=== PATIENT | male | born 1945 | race Caucasian/White ===

== ENCOUNTER 2017-01-02 11:30 | Inpatient (IN) | payer MEDICARE, OTHER ==
--- NOTE | ~2017-01-02 | CR72 ---
[facility] A Service of [facility] & [facility] RADIOLOGY TEXT RESULTS PATIENT: JOSE LAUREN LOCATION: [facility] 231- : 46 UNIT #: [id number] AGE: [address]: Alda Chatterjee MD SEX: M ORDER DR: [id number] [facility] [address] [place], [place] [address] [id number] I MR#: [id number] Acc #: [id number] NAME: JOSE LAUREN. : 1945 SEX: M STUDY DATE/TIME: 01/02/2017 10:45 UNIT: C5B ROOM: [facility] STUDY DESCRIPTION: CR Chest Single View Portable Attending Physician: Veronica Becerra M.D. Ordering Physician: Heather Thomas Primary Care Physician: Bong Krishnan M.D. MEDICAL IMAGING REPORT This report is preliminary unless electronic signature is present EXAM Portable chest radiograph INDICATIONS Shortness of breath, cough and congestion starting today. FINDINGS Heart size is within normal limits. Lung volumes are diminished likely reflecting poor inspiratory effort. There is no pneumothorax pleural effusion or acute infiltrate. Dictated by... Opal Homlan M.D. THIS IS AN ELECTRONICALLY VERIFIED REPORT Opal Holman M.D. at 01/05/2017 12:57 PM AFF/rnr TD: 01/03/2017 04:38 JOB #: [id number] MEDICAL IMAGING REPORT Page 1 of 1 COPY
--- NOTE | ~2017-01-02 | CT2 ---
[facility] A Service of [facility] & [facility] RADIOLOGY TEXT RESULTS PATIENT: JOSE LAUREN LOCATION: [facility] 558-01 : 46 UNIT #: [id number] AGE: [address]: Veronica Becerra MD SEX: M ORDER DR: [id number] [facility] [address] [place], [place] [address] [id number] I MR#: [id number] Acc #: [id number] NAME: JOSE LAUREN. : 1945 SEX: M STUDY DATE/TIME: 01/02/2017 13:23 UNIT: [facility] ROOM: [facility] STUDY DESCRIPTION: CT Abd and Pelv W Cont Attending Physician: Veronica Becerra M.D. Ordering Physician: Yoni Romero M.D. Primary Care Physician: Bong Krishnan M.D. MEDICAL IMAGING REPORT This report is preliminary unless electronic signature is present EXAM CT abdomen and pelvis with contrast 01/02/2017 HISTORY 71-year-old male with right upper quadrant abdominal pain beginning today. COMPARISON None. TECHNIQUE Helical scan performed through the abdomen and pelvis following administration of IV contrast. Coronal and sagittal reformatted images. This CT examination was performed with one or more of the following radiation dose reduction techniques: automatic exposure control, adjustment of mA and/or kV according to patient size, and iterative reconstruction. FINDINGS Visualized lung bases are unremarkable. Mild elevation of the right hemidiaphragm. There is prominence of the intrahepatic and extrahepatic bile ducts with a focal density in the common bile duct near the ampulla. Choledocholithiasis versus ampullary mass may be considered. Suggest further evaluation with ERCP or MRCP. Cholelithiasis is also noted. Liver otherwise unremarkable. Pancreas demonstrates atrophy of the mid body and tail with chronic calcifications suggesting chronic calcific pancreatitis. The spleen is unremarkable. There is a 2.1 cm right adrenal myelolipoma. Left adrenal gland is grossly unremarkable. The kidneys appear within normal limits. Abdominal aorta normal in course and caliber with scattered atherosclerotic calcification. No dissection. Small bowel is unremarkable without obstruction. Appendix normal. Colon unremarkable. No free fluid or free air. STS. [facility] A Service of [facility] & [facility] RADIOLOGY TEXT RESULTS PATIENT: JOSE LAUREN LOCATION: [facility]8- : 46 UNIT #: [id number] AGE: [address]: Veronica Becerra MD SEX: M ORDER DR: Mild enlargement of the prostate gland. Urinary bladder is unremarkable. No free pelvic fluid. No acute bony abnormality. Postsurgical changes of the lumbar spine. IMPRESSION 1. Mild prominence of the intrahepatic and extrahepatic bile ducts. There is a focal filling defect in the distal common bile duct near the ampulla. This could represent a common bile duct stone or mass. Suggest further characterization with ERCP or MRCP. Cholelithiasis is also noted. 2. Atrophy and chronic appearing calcifications in the pancreatic body and tail suggesting chronic calcific pancreatitis. 3. 2.1 cm right adrenal myelolipoma. 4. Normal appendix. 5. Mild enlargement of the prostate gland. Dictated by... Benito Rose M.D. THIS IS AN ELECTRONICALLY VERIFIED REPORT Benito Rose M.D. at 01/03/2017 10:55 AM MONTY/hanane TD: 01/03/2017 09:13 JOB #: [id number] MEDICAL IMAGING REPORT Page 1 of 1 COPY
--- NOTE | ~2017-01-02 | DS ---
Unit #: [id number] #: [id number] Patient: JOSE LAUREN [id number] [address] [address] [id number] I MR#: [id number] NAME: JOSE LAUREN. ROOM: 231 Age: 71 Sex: M Admission Date: 01/02/2017 : 1945 Discharge Date: 01/05/2017 Attending Physician: Alda Chatterjee M.D. Primary Care Physician: Bong Krishnan M.D. DISCHARGE SUMMARY PRINCIPAL DIAGNOSES 1. Obstructive jaundice secondary to number 2. Discharge bilirubin 4.1. 2. Choledocholithiasis status post endoscopic retrograde cholangiopancreatography, stone lithotripsy, sphincterotomy and stent placement. 3. 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 4. Hypertension, uncontrolled. 5. Diabetes mellitus type 2, uncontrolled with hemoglobin A1C of 10.1. 6. Hypovolemic hyponatremia, resolved. 7. Severe hyperlipidemia with low-density lipoprotein of 713. 8. Severe protein malnutrition. 9. Obstructive sleep apnea. 10. Tobaccoism. CONSULTANTS Dr. Mancilla, gastroenterology. PROCEDURES ERCP on January 04, 2017 with findings of common bile duct stone. Stone underwent lithotripsy and extraction. Patient was also found to have biliary stenosis and underwent sphincterotomy and stent placement. DIAGNOSTIC STUDIES IMAGING: CT of the abdomen and pelvis with contrast on January 02, 2017 with intrahepatic and extrahepatic bile duct prominence. Filling defect of the distal common bile duct near the ampulla. Cholelithiasis is noted. Atrophy and chronic calcification of the pancreatic body and tail noted. A 2.1 cm right adrenal myelolipoma. Enlargement of the prostate gland noted. Bilateral lower extremity venous Doppler, which was negative for DVT. CLINICAL HISTORY AND HOSPITAL COURSE Mr. Lauren is a 71-year-old male who presented to the emergency department with knee pain after his knee gave out in the emergency department. As he was being evaluated in the emergency department, he was found to have jaundice. Blood work revealed an elevated alkaline phosphatase of 1,275 with associated AST and ALT elevations. Total bilirubin was 7.9, which was primarily direct. White blood cell count was elevated at 12.5. CT scan of the abdomen and pelvis was done with results as noted, and the patient was admitted. Dr. Mancilla was consulted for the patient's obstructive jaundice. Given CT findings, it was felt the patient would best benefit from undergoing ERCP, Unit #: [id number] #: [id number] Patient: JOSE LAUREN which he underwent on the . He was found to have a common bile duct stone in addition to a common bile duct stricture. He underwent sphincterotomy, stone extraction and stent placement. On day of discharge alkaline phosphatase is still significantly elevated at 985 but is trending down. Bilirubin is now down 4.1. AST and ALT are 55 and 82 respectively. He will follow up with blood work in [address] Mancilla. The patient was also found to have significant hypertension and is honestly somewhat vague about his history and what he is taking. I am going to increase his lisinopril, and he can follow up his blood pressure at the [place]. The patient was also found to have significant hyperglycemia, and hemoglobin A1C indicates chronic poor control of diabetes. I have discussed this with the patient, who states that he will follow up on it at the [place]. The patient's other chronic conditions remained stable. He does have some significant hyperlipidemia, and I am going to continue his Zocor and, again, this can be followed up as at the [place]. DISCHARGE CONDITION Stable. DISCHARGE STATUS Discharge to home. DISCHARGE MEDICATIONS 1. Neurontin 600 mg p.o. t.i.d. 2. Metformin 1,000 mg b.i.d. 3. Ambien 12.5 mg at bedtime p.r.n. sleep. 4. Metoprolol tartrate 25 mg daily. 5. Chlorthalidone 25 mg daily. 6. Vitamin E 100 units p.o. daily. 7. Zocor 40 mg at bedtime. 8. Prinivil increased to 40 mg p.o. daily. 9. Lantus 20 units subcutaneously at bedtime. 10. A daily multivitamin. 11. Aspirin 81 mg daily can be reinitiated in 7 days. 12. Lortab 7.5/325 mg 1 tablet p.o. q.6 hours p.r.n. pain. 13. Potassium chloride 10 mEq p.o. b.i.d. 14. Glucotrol 10 mg b.i.d. 15. Vitamin B12 - 2,500 mcg daily. 16. Vitamin D3 - 50,000 units weekly. DISCHARGE INSTRUCTIONS Patient was instructed to follow a heart healthy, constant carb diet, and he did receive diabetic education during the hospitalization. He will continue Accu-Cheks a.c. and h.s. at home. He can increase his activity as tolerated. FOLLOW-UP 1. Patient will follow up with Dr. Mancilla on January 28, 2017 at 3:30 p.m. He has been given a prescription to recheck a CBC and CMP 3 days prior to appointment with Dr. Mancilla. 2. The patient should follow up with his primary care provider, Dr. Krishnan, in approximately 1 week, as well. I think he needs a repeat BMP at that time, and perhaps he would benefit from short-acting insulin and discontinuation of sulfonylurea if Dr. Unit #: [id number] #: [id number] Patient: JOSE LAUREN Eulogio feels this is appropriate, given sugars are uncontrolled. NOTE: Time spent on discharge - 33 minutes. Dictated by... Alda Chatterjee M.D. CHUCK/delvin TD: 01/06/2017 09:25 JOB #: [id number] DISCHARGE SUMMARY Page 1 of 1 X Alda Chatterjee MD X DISCHARGE SUMMARY
--- NOTE | ~2017-01-02 | A ---
[facility] Nutrition Therapy DATE: 01/04/17 Patient: JOSE Ames ANTIONECarlos Manuel Physician: ANY Address: [address] Room/Bed: [address] [place] [address], Zip: [place] [address] Admit Date: 01/02/17 Date of : [birth year] Height: 5 11 Weight: 221 100.5 NUTRITIONAL ASSESSMENT: REASON: CONSULT RE: DM EDUCATION PT IS 71 Y.O. MALE ADMITTED FOR OBSTRUCTIVE JAUNDICE RD PROVIDED WRITTEN AND VERBAL CC DIET EDUCATION. RD PROVIDED LIST OF FOODS TO AVOID/LIMIT AND FOODS TO EAT MORE OFTEN. RD ALSO EMPHASIZED IMPORTANCE OF CONSUMING 3 BALANCED MEALS DAILY WELL LIMIT SUGAR-SWEETENED BEVERAGES. PT REPORTS ONLY CONSUMING 1-2 MEALS DAILY WELL DRINKS WATER AND SWEET TEA AT HOME. PT WILLING TO ADD AN EXTRA MEAL TO HIS DAY AND DRINK MORE WATER DAILY. PT DEMONSTRATED UNDERSTANDING OF THE TOPIC. PT REPORTED NO DIET QUESTIONS AT THIS TIME. RD TO FOLLOW. RECOMMENDATIONS: 1. ONCE MEDICALLY FEASIBLE, ADVANCE DIET TO CC RD WILL F/U PER PROTOCOL Respectfully, ZACKARY MENDOZA MS, RD, LD Food and Nutritional Services [facility] cc: client file
--- NOTE | ~2017-01-02 | CR83 ---
[facility] A Service of [facility] & [facility] RADIOLOGY TEXT RESULTS PATIENT: JOSE LAUREN LOCATION: [place] [address] : 46 UNIT #: [id number] AGE: [address]: lAda Chatterjee MD SEX: M ORDER DR: [id number] [facility] [address] [place], [place] [address] [id number] I MR#: [id number] Acc #: [id number] NAME: JOSE LAUREN : 1945 SEX: M STUDY DATE/TIME: 01/04/2017 16:55 UNIT: C5B ROOM: [facility] STUDY DESCRIPTION: CR ERCP Biliary Duct SI Attending Physician: Alda Chatterjee M.D. Ordering Physician: Caleb Mancilla M.D. Primary Care Physician: Bong Krishnan M.D. MEDICAL IMAGING REPORT This report is preliminary unless electronic signature is present EXAM ERCP 01/04/2017 INDICATIONS Obstructive jaundice, stone removal, stent placement. TECHNIQUE 9 small [id number] spot fluoroscopic images from an ERCP procedure performed 01/04/[address] Mancilla are submitted for review. No comparisons. FINDINGS Notes indicate that 3.09 minutes of fluoroscopy time was used in the case. Initial image demonstrates canalization and opacification of the common bile duct. Filling defects are identified suggestive of choledocholithiasis. There is also a stricture in the distal common bile duct with upstream dilatation of the common bile duct and mild prominence of the intrahepatic biliary system. Subsequent images demonstrate wire passage into the common bile duct and apparent balloon sweeping of the duct along with sphincterotomy changes. The notes indicate a suspicious mass was encountered and associated with the stricture in the distal common bile duct. Subsequent images demonstrate placement of a common bile duct stent. Please refer to the operative report of the surgeon for further details. IMPRESSION 1. Distal common bile duct stricture with upstream intra- and extrahepatic biliary ductal dilatation up to about 11-12 mm. 2. Filling defects most characteristic of choledocholithiasis with subsequent balloon sweeping and retrieval of stones, according to the provided notes. 3. The notes indicate a suspicious mass was encountered and associated with the distal common bile duct stricture. Please refer [facility] A Service of [facility] & [facility] RADIOLOGY TEXT RESULTS PATIENT: JOSE LAUREN LOCATION: [facility] 231-01 : 46 UNIT #: [id number] AGE: [address]: Alda Chatterjee MD SEX: M ORDER DR: to the operative report of the surgeon and pathology results for further details. 4. The last image demonstrates placement of a common bile duct stent. 5. Notes indicate about 3.09 minutes of fluoroscopy time was used in the case. 9 spot fluoroscopic views from the procedure were obtained and saved to the PACS System. Dictated by... Anand Thompson M.D. THIS IS AN ELECTRONICALLY VERIFIED REPORT Anand Thompson M.D. at 01/05/2017 2:51 PM MICHAEL/chip TD: 01/05/2017 00:32 JOB #: [id number] MEDICAL IMAGING REPORT Page 1 of 1 COPY
--- NOTE | ~2017-01-02 | HP ---
Unit #: [id number] #: [id number] Patient: JOSE LAUREN [id number] [address] [address] [id number] I MR#: [id number] NAME: JOSE LAUREN. ROOM: 558 Age: 71 Sex: M Admission Date: 01/02/2017 : 1945 Attending Physician: Veronica Becerra M.D. Primary Care Physician: Bong Krishnan M.D. HISTORY AND PHYSICAL CHIEF COMPLAINT Knee gave out while standing this morning. HISTORY OF PRESENT ILLNESS The patient is a 71-year-old male with a past medical history of hypertension, hyperlipidemia, diabetes, chronic pain, non-Hodgkin lymphoma, obstructive sleep apnea, who presented to the emergency department for evaluation of the above. The patient states that he was in his usual state of health until the morning of admission around 2:30 when he was using the bathroom and his knees "got weak." He denies any loss of consciousness, no hitting his head. He states that he had taken an unknown pill to sleep a few hours prior. He denies any fever, no cough or cold symptoms, no chest pain, no trouble breathing, no abdominal pain, no diarrhea or constipation, no urinary symptoms. He states that his weight has been fluctuating. He had gained 17 pounds and then lost 10 within the past couple of months. He has also noticed swelling of his legs that is not a knew problem. In the emergency department, laboratory is notable for AST and ALT of 134 and 169 respectively. Alkaline phosphatase is 1275. Total bilirubin is 7.9 with 5.3 direct and 2.6 indirect. Urinalysis shows findings concerning for infection. White blood cell count is 12.5. CT of the abdomen and pelvis was done showing a filling defect in the distal common bile duct concerning for stone versus mass. ERCP is recommended. He is being admitted to [facility] for evaluation and further treatment. PAST MEDICAL HISTORY 1. Hypertension. 2. Hyperlipidemia. 3. Diabetes. The patient's blood sugars are typically in the 85 to 130 range. 4. Chronic pain. 5. Non-Hodgkin lymphoma, status post radiation and chemotherapy in 2009, followed by Dr. Bird. 6. Obstructive sleep apnea, on CPAP, followed by Dr. Gonzáles. PAST SURGICAL HISTORY Back surgery. SOCIAL HISTORY The patient lives with his son. He smokes a pack of cigarettes daily. He reports occasional alcohol use. He walks without assistance. His code Unit #: [id number] #: [id number] Patient: JOSE LAUREN status is a DO NOT RESUSCITATE. FAMILY HISTORY Notable for his mother having cerebrovascular accident. His dad had heart problems. ALLERGIES Venlafaxine. HOME MEDICATIONS 1. Ambien 12.5 mg at bedtime p.r.n. 2. Aspirin 81 mg daily. 3. Glucotrol 10 mg twice daily. 4. Lortab 7.5/325 q.6 hours p.r.n. 5. Lantus, unknown dose. 6. Prinivil 20 mg daily. 7. Glucotrol 1000 mg twice daily. 8. Metoprolol 25 mg daily. 9. Multivitamins daily. 10. Neurontin 600 mg t.i.d. 11. Chlorthalidone 25 mg daily. 12. Vitamin B12 2500 mcg daily. 13. Vitamin D3 50,000 units daily. 14. Vitamin E 100 units daily. 15. OxyContin, unknown dose. 16. Potassium 10 mEq twice daily. 17. Zocor 40 mg daily. REVIEW OF SYSTEMS A complete review of systems is negative except as indicated in the HPI. DIAGNOSTIC STUDIES CARDIOVASCULAR: EKG shows sinus tachycardia with fusion complex with a rate of 102 beats/minute. There is a right bundle branch block. IMAGING: CT of the abdomen and pelvis shows a filling defect in the common bile duct concerning for possible stone versus mass. ERCP is recommended. There is a right adrenal myelolipoma. Cholelithiasis is also noted as well as prominence of the intra and extrahepatic bile duct. LABORATORY: Comprehensive metabolic panel notable for sodium of 133, potassium is 3.1, chloride 97, glucose 158. AST and ALT are 134 and 169 respectively. Alkaline phosphatase 1275. Total bilirubin is 7.9 with 5.3 direct and 2.6 indirect. Albumin is 2.2. Complete blood count notable for white blood cell count of 12.5. BNP is 112. Urinalysis is notable for trace leukocyte esterase, positive nitrate, 3+ protein, 500 glucose, positive bile, 2+ blood, 10-25 red blood cells. Negative for bacteria. Urine tox screen is positive for marijuana and tricyclics. Troponin is less than 0.05. PHYSICAL EXAMINATION VITAL SIGNS: Temperature is 98.9, pulse 110, respirations 17, blood Unit #: [id number] #: [id number] Patient: JOSE LAUREN F pressure 118/62. Oxygen saturation is 100% on room air. GENERAL: The patient is a male who is awake and alert, in no acute distress. HEENT: The sclerae are icteric. Mucous membranes are moist. NECK: Supple. Trachea is midline. CARDIOVASCULAR: Regular rate and rhythm. LUNGS: Demonstrate a few scattered rhonchi. Breathing is not labored. ABDOMEN: Soft, nontender with bowel sounds present in all four quadrants. EXTREMITIES: 3+ pitting edema bilateral lower extremities. NEURO: The patient is oriented x3. He follows commands. PSYCH: Mood and affect are normal. The patient is cooperative. SKIN: Jaundiced. ASSESSMENT The patient is a 71-year-old male with: 1. Obstructive jaundice, secondary to #2. 2. Possible common bile duct stone versus mass. 3. Hypokalemia. 4. Urinary tract infection. 5. Sepsis. 6. Normocytic anemia: The patient's hemoglobin is 12.5 with no baseline for comparison. 7. Hypertension. 8. Hyperlipidemia. 9. Diabetes. 10. Chronic pain: The patient was previously on narcotics but states that he didn't like the way it made him feel. 11. Non-Hodgkin lymphoma, status post chemotherapy and radiation in 2009, followed by Dr. Bird. 12. Obstructive sleep apnea, on CPAP, followed by Dr. Gonzáles. 13. Tobacco abuse. 14. Right adrenal myelolipoma. 15. Cholelithiasis without evidence of cholecystitis. PLAN 1. Admit to intermediate level. 2. Clear liquid diet. 3. NPO after midnight for possible ERCP. 4. Consult Dr. Mancilla regarding obstructive jaundice and ERCP. 5. Check magnesium level. 6. Potassium and magnesium protocol. 7. Blood cultures x2. 8. Urine culture and sensitivity on urine in the lab. 9. Rocephin 1 g IV daily pending results of urine culture. 10. Sepsis protocol with stat lactic acid and repeat. 11. Hemoglobin A1c. 12. Low dose sliding scale insulin with Accu-Cheks. 13. CPAP at home settings. 14. Bedrest. 15. Fall precautions. 16. PT/OT to evaluate and treat. 17. Serial cardiac enzymes. 18. Bilateral lower extremity venous Dopplers for further evaluation of edema. 19. Repeat labs in the morning including INR. 20. Regarding code status, the patient is a DO NOT RESUSCITATE. Additional workup and consultants based on above. Unit #: [id number] #: [id number] Patient: JOSE LAUREN Dictated by Parish Dorsey/arnel TD: 01/03/2017 09:00 JOB #: [id number] HISTORY AND PHYSICAL Page 1 of 1 X Veronica Becerra MD X HISTORY AND PHYSICAL
--- NOTE | ~2017-01-02 | CO ---
Unit #: [id number] #: [id number] Patient: JOSE LAUREN [id number] [address] [address] [id number] I MR#: [id number] NAME: JOSE LAUREN ROOM: 558 Age: 71 Sex: M Admission Date: 01/02/2017 : 1945 Attending Physician: Veronica Becerra M.D. Primary Care Physician: Bong Krishnan M.D. Consultation Date: 01/03/2017 CONSULTATION REPORT PRIMARY CARE PHYSICIAN Bong Krishnan M.D. REASON FOR CONSULTATION Obstructive jaundice. HISTORY OF PRESENT ILLNESS Mr. Lauren is a very pleasant 71-year-old white gentleman. The patient came to the hospital because he says his legs gave away and he could no longer stand and he had suddenly felt weak. Upon admission, he was found to be deeply jaundiced. The patient is aware of the jaundice the last couple of weeks. He denies any history of abdominal pain whatsoever. His appetite has been poor. He says there has been a change in his taste and nothing tastes good. The patient may have lost a little bit of weight, but is unsure of the latter. PAST MEDICAL HISTORY Significant for history of hypertension, hyperlipidemia, type 2 diabetes, chronic pain syndrome, non-Hodgkin lymphoma, and obstructive sleep apnea. The patient was treated for non-Hodgkin lymphoma with chemo and radiation therapy about 7 years ago. PAST SURGICAL HISTORY Included back surgery. SOCIAL HISTORY He lives at home with his son. Smokes a pack of cigarette daily and rarely drinks alcohol. Walks without help or assistance. FAMILY HISTORY Significant for stroke in his mother and cardiac problems in father. There is no family history of colon or pancreatic cancer or liver disease. MEDICATIONS At home included the following; Ambien, aspirin, Glucotrol, Lortab, Lantus insulin, Prinivil, metoprolol, Neurontin, chlorthalidone, multiple vitamins, OxyContin, potassium, and Zocor. ALLERGIES Venlafaxine. REVIEW OF SYSTEMS Detailed review of organ systems is significant for mild weight loss. There is no history of fever, chills, or rigors. No history of headache, Unit #: [id number] #: [id number] Patient: JOSE LAUREN seizures, chest pain, or syncope. No history of cough, expectoration, or hemoptysis. No history of dysuria, hematuria, or pyuria. No history of hematemesis, melena, or hematochezia. No history of abdominal pain. No history of skin rash, aphthous ulcers in the mouth, or reactive arthritis. PHYSICAL EXAMINATION GENERAL: He is alert and oriented and appears jovial. He is sitting up in chair. VITAL SIGNS: Stable with a temperature of 98.2, pulse 78 per minute and regular, respiratory rate is 18, and blood pressure 134/66. He weighs 221 pounds. His baseline weight is not available. HEENT: He has mild pallor. There being deep icterus. No lymphadenopathy or peripheral edema. CARDIOVASCULAR: Normal heart sounds. No murmurs on auscultation. LUNGS: Reveal normal breath sounds. Good air entry. ABDOMEN: Soft and nontender. Liver spleen are not palpable. Bowel sounds normal. DIAGNOSTIC STUDIES LABORATORY RESULTS: Significant for a total bilirubin of 11.5, most of which is direct. Alkaline phosphatase is close to a 1000. AST and ALT are modestly elevated at 130 and 170 respectively. Potassium is 3.1 and glucose 158. Albumin is 1.7. INR is 1. Hemoglobin is 11, white count 7000, and platelet count is normal at 322. IMAGING STUDIES: Suggest cholelithiasis as well as intra and extrahepatic biliary ductal dilation with possibly either a mass or calculi in the distal common bile duct near the ampullary area. No distinct pancreatic mass was seen. In fact, there is atrophy and calcification of the pancreas. CLINICAL IMPRESSION The patient with distal common bile duct obstruction either from a tumor or stone disease. An endoscopic retrograde cholangiopancreatography and clearance of the common bile duct are indicated and this will be performed tomorrow. The pros and cons of the procedure and potential risks and complications including possibility of perforation, bleeding, complications related to sedation, and pancreatitis were discussed with the patient and his son who was at the bedside. Thank you very much for asking me to see this pleasant gentleman. I appreciate the consult. Dictated by.Casimiro. Parish Santillan/andrew TD: 01/03/2017 16:06 JOB #: [id number] Unit #: [id number] #: [id number] Patient: JOSE LAUREN CONSULTATION REPORT Page 1 of 1 X Caleb Mancilla MD CONSULTATION REPORT
--- NOTE | ~2017-01-02 | EKG ---
PATIENT: JOSE LAUREN UNIT #: [id number] Ventricular Rate: 102 BPM Atrial Rate: 102 BPM P-R Interval: 176 ms QRS Duration: 150 ms Q-T Interval: 396 ms QTC Calculation(Bezet): 516 ms P Jackson: 42 degrees Calculated R Jackson: -29 degrees Calculated T Jackson: -4 degrees Diagnosis Line: Sinus tachycardia with Fusion complexes Diagnosis Line: Right bundle branch block Diagnosis Line: Nonspecific ST and T wave abnormality Diagnosis Line: Abnormal ECG Diagnosis Line: No previous ECGs available Diagnosis Line: Confirmed by SHAWN ALY MD ([id number]) on 01/03/2017 Diagnosis Line: 7:17:09 AM INTERPRETING MD: SHEEBA POST
--- NOTE | ~2017-01-02 | OR ---
Unit #: [id number] #: [id number] Patient: JOSE LAUREN [id number] [address] [address] [id number] I MR#: [id number] NAME: JOSE LAUREN ROOM: 231 Date of Procedure: 01/04/2017 Admission Date: 01/02/2017 Surgeon: Caleb Mancilla M.D. : 1945 Attending Physician: Alda Chatterjee M.D. Primary Care Physician: Bong Krishnan M.D. OPERATIVE REPORT PRIMARY CARE PHYSICIAN Bong Krishnan M.D. PREOPERATIVE DIAGNOSIS The patient has presented with obstructive jaundice. PROCEDURES PERFORMED Endoscopic retrograde cholangiopancreatography with sphincterotomy, endoscopic retrograde cholangiopancreatography with brushings, endoscopic retrograde cholangiopancreatography with dilation of the distal common bile duct stricture, endoscopic retrograde cholangiopancreatography with stone extraction using lithotripter and endoscopic retrograde cholangiopancreatography with biliary stent placement. POSTOPERATIVE DIAGNOSES A preliminary upper gastrointestinal endoscopy was performed that was normal. The patient had a single stone in the distal part of the common bile duct above a stricture, that extended for about 1.5 to 2 cm above the ampulla. After sphincterotomy and dilation of the stricture, brushings were obtained from the strictured area. The single stone was then crushed using lithotripter and multiple stone fragments were delivered in the duodenum. The patient probably still has some residue debris in the common bile duct. However, excellent biliary drainage was established and a 10-Congolese 7 cm biliary stent was placed towards the end of the procedure. RECOMMENDATIONS 1. Repeat CBC, CMP, amylase, and lipase in a.m. 2. Diet as tolerated. 3. This should lead to resolution of the obstructive jaundice and the patient should be able to go home within 24 to 48 hours. SEDATION USED . DESCRIPTION OF PROCEDURE Following detailed explanation of the potential risks and complications of an ERCP, namely perforation, bleeding, complication related to sedation, and pancreatitis, the patient was brought to GI lab and laid in the left semiprone position. Sedation using was given by Dr. Rosales. The patient was intubated. A preliminary upper GI endoscopy was performed, which was normal. A lateral-viewing duodenoscope was then advanced through the oral cavity into the esophagus and advanced into the Unit #: [id number] #: [id number] Patient: JOSE LAUREN stomach. Pylorus was intubated in the usual fashion. The scope was advanced in deep descending duodenum. Upon shortening the scope, major papilla and ampullary area was visualized en face. The patient had a very ampullary diverticulum. The common bile duct was then cannulated using guidewire based technique, and contrast cholangiogram was obtained. This showed presence of a large single stone in the distal part of the common bile duct above a strictured area just above the papilla. A sphincterotomy was then performed and using a 6 mm and 4 cm long dilating balloon, the distal common bile duct stricture was dilated. A gush of bile was seen entering the duodenum after dilation. Brushings were then obtained from the strictured area and sent for cytology. The stone was then retrieved by crushing the stone with a lithotripter followed by retrieval balloon at 9 and 10 mm of pressures. Multiple stone fragments were delivered in the duodenum. A 10-Congolese 7 cm biliary stent was then deployed. Excellent biliary drainage was established. The scope and the accessories were then withdrawn. The patient returned to the recovery area. He tolerated the procedure without any postprocedure complications. Dictated by... Parish Santillan/andrew TD: 01/04/2017 23:22 JOB #: [id number] CC: Parish Mendez M.D. OPERATIVE REPORT Page 1 of 1 X Caleb Mancilla MD X PROCEDURE OPERATIVE NOTE
--- NOTE | ~2017-01-02 | US84 ---
[id number] [facility] [address] [place], [place] [address] [id number] MR#: [id number] Acc #: [id number] NAME: JOSE LAUREN : 1945 SEX: M STUDY DATE/TIME: 01/02/2017 20:39 UNIT: C5B ROOM: 558 STUDY DESCRIPTION: US LE Veins Complete Kirk Stdy Attending Physician: Veronica Becerra M.D. Ordering Physician: Veronica Becerra M.D. Primary Care Physician: Bong Krishnan M.D. MEDICAL IMAGING REPORT This report is preliminary unless electronic signature is present EXAM Bilateral lower extremity venous ultrasound HISTORY Lower extremity swelling for 1 year. TECHNIQUE Venous ultrasound examination of both lower extremities was performed using grayscale, spectral Doppler and color flow Doppler imaging. FINDINGS The examination is negative. There is no evidence of deep venous thrombus from the groin to the lower calf bilaterally. Visualized greater saphenous veins are also patent. IMPRESSION Negative examination. No evidence of lower extremity deep venous thrombosis. Dictated by... Zana Ghosh M.D. THIS IS AN ELECTRONICALLY VERIFIED REPORT Zana Ghosh M.D. at 01/03/2017 11:32 PM FLORENTINO/eliseo TD: 01/03/2017 15:31 JOB #: [id number] MEDICAL IMAGING REPORT Page 1 of 1 COPY
[2017-01-02 11:30] LABS: POC - CKMB 8.8 ng/mL (0.0-7.9); POC - TROPONIN <0.05 ng/mL (<=0.05)
[~2017-01-02 11:30] MED LIST: ASPIRIN81 M1 PO; CENTRUM PO; CRESTOR10 MG PO; CYMBALTA PO; FENOFIBRATE160 MG PO; INNOPRAN XL120 MG PO; LANTUS100 U/M1; LISINOPRIL-HCTZ1 T16 PO; METAGLIP 5/5001 TAB; TOFRANIL25 MG PO; VITAMIN B 12; VITAMIN E400 UNI1 PO
[2017-01-02 11:35] LABS: URINE SOURCE CLEAN CATCH
[2017-01-02 11:39] LABS: BASOPHIL# 0.1 X10e3 (0-0.3); BASOPHIL% 0.4 % (0-2.5); EOSINOPHIL% 0.3 % (0.0-7.0); HEMATOCRIT 38.2 % (38.0-50.0); HEMOGLOBIN 12.5 gm/dL (13.0-16.0); MEAN CELL VOLUME 92.4 FL (83-96); MEAN CORPUSCULAR HEMOGLOBIN 30.3 PG (28-34); MEAN CORPUSCULAR HGB CONC 32.8 g/dL (30-36); MEAN PLATELET VOLUME 7.3 FL (6.5-11.5); MONOCYTE# 3.7 X10e3 (0-1.0); MONOCYTE% 29.4 % (3.0-12.0); NEUTROPHIL# 7.7 X10e3 (1.5-7.1); NEUTROPHIL% 61.9 % (40-75); PLATELET COUNT 417 X10e3 (140-420); RED BLOOD COUNT 4.13 X10e (3.90-5.60); RED CELL DISTRIBUTION WIDTH 15.5 % (11.0-15.5); WHITE BLOOD COUNT 12.5 X10e3 (4.0-10.5)
[2017-01-02 11:40] LABS: URINE APPEARANCE CLOUDY; URINE BLOOD 2+ (NEG); URINE COLOR DK YELLOW; URINE GLUCOSE 500 MG/DL (NEG); URINE KETONE NEG (NEG); URINE LEUKOCYTE ESTERASE TRACE (NEG); URINE NITRATE POS (NEG); URINE PROTEIN 3+ (NEG); URINE SPECIFIC GRAVITY 1.022 (1.003-1.035)
[2017-01-02 11:40] LABS: DIFF IND YES
[2017-01-02 11:43] LABS: URINE BACTERIA AUWI NEG (NEGATIVE); URINE SQUAMOUS EPITHELIAL CELL OCC /[HPF]
[2017-01-02 11:52] LABS: AMPHETAMINE NEG (NEG); BARBITURATES NEG (NEG); BENZODIAZEPINES NEG (NEG); COCAINE NEG (NEG); MARIJUANA POS (NEG); OPIATES NEG (NEG); TRICYCLIC ANTIDEPRESSANTS POS (NEG); U METHADONE NEG (NEG)
[2017-01-02 11:56] LABS: CULTURE INDICATED? NO
[2017-01-02 11:57] LABS: URINE BILIRUBIN POS (NEG)
[2017-01-02 11:59] LABS: U HYALINE CASTS AUWI 0-2 /[LPF]
[2017-01-02 12:00] LABS: URINE MUCUS PRESENT
[2017-01-02 12:15] LABS: ALBUMIN SERUM 2.2 g/dL (3.5-5.0); BILIRUBIN, DIRECT 5.3 mg/dL (0.0-0.2); BILIRUBIN,INDIRECT 2.6 mg/dL (0.0-0.9); BILIRUBIN,TOTAL 7.9 mg/dL (0.2-2.0); BUN/CREATININE RATIO 17.14; CALCIUM SERUM 8.8 mg/dL (8.4-10.2); CREATININE SERUM 0.7 mg/dL (0.6-1.4); GLOM FILT RATE Estimated 95.7 mL/min (>60); POTASSIUM 3.1 mmol/L (3.5-5.1)
[2017-01-02 12:36] LABS: ANISOCYTOSIS SL; PLATELET ESTIMATE NORMAL (NORMAL)
[2017-01-02] MEDS ORDERED: BAYER CHEWABLE81 MG PO (13:22)
[2017-01-02] MEDS ORDERED: AMBIEN12.5 M1 PO (13:22)
[2017-01-02] MEDS ORDERED: GLUCOTROL10 MG PO (13:23)
[2017-01-02] MEDS ORDERED: LORTAB 7.5-3251 EACH PO (13:23)
[2017-01-02] MEDS ORDERED: LANTUS100 U/ML SUBQ (13:24)
[2017-01-02] MEDS ORDERED: PRINIVIL20 M1 PO (13:24)
[2017-01-02] MEDS ORDERED: METFORMIN PO (13:25)
[2017-01-02] MEDS ORDERED: CHLORTHALIDONE25 MG PO (13:26)
[2017-01-02] MEDS ORDERED: METOPROLOL TAR25 MG PO (13:26)
[2017-01-02] MEDS ORDERED: MULTI VITAMIN1 EACH PO (13:26)
[2017-01-02] MEDS ORDERED: NEURONTIN600 MG PO (13:26)
[2017-01-02] MEDS ORDERED: VITAMIN B122500 MCG PO (13:27)
[2017-01-02] MEDS ORDERED: VITAMIN D350000 UNIT PO (13:27)
[2017-01-02] MEDS ORDERED: POTASSIUM CHLO10 MEQ PO (13:28)
[2017-01-02] MEDS ORDERED: VITAMIN E100 UNI3 PO (13:28)
[2017-01-02] MEDS ORDERED: OXYCONTIN (13:28)
[2017-01-02] MEDS ORDERED: ZOCOR PO (13:29)
[2017-01-02 17:30] LABS: INR 0.9; PROTHROMBIN TIME (PATIENT) 9.8 SECONDS (9.6-11.5)
[2017-01-03 01:32] LABS: MAGNESIUM 1.7 mg/dL (1.6-3.0); POTASSIUM 3.9 mmol/L (3.5-5.1)
[2017-01-03 01:51] LABS: %MB 0.9 % (0.0-4.0); MB 2.5 ng/ml
[2017-01-03 08:29] LABS: HEMATOCRIT 33.5 % (38.0-50.0); HEMOGLOBIN 11.2 gm/dL (13.0-16.0); MEAN CELL VOLUME 93.2 FL (83-96); MEAN CORPUSCULAR HGB CONC 33.3 g/dL (30-36); MEAN PLATELET VOLUME 7.1 FL (6.5-11.5); RED BLOOD COUNT 3.6 X10e (3.90-5.60); RED CELL DISTRIBUTION WIDTH 14.9 % (11.0-15.5); WHITE BLOOD COUNT 7.7 X10e3 (4.0-10.5)
[2017-01-03 08:41] LABS: PROTHROMBIN TIME (PATIENT) 10.1 SECONDS (9.6-11.5)
[2017-01-03 08:59] LABS: ALBUMIN SERUM 1.7 g/dL (3.5-5.0); CALCIUM SERUM 8.4 mg/dL (8.4-10.2); CREATININE SERUM 0.5 mg/dL (0.6-1.4); GLOM FILT RATE Estimated 109.8 mL/min (>60); MAGNESIUM 1.7 mg/dL (1.6-3.0); POTASSIUM 3.1 mmol/L (3.5-5.1); PROTEIN TOTAL SERUM 5.2 g/dL (6.0-8.3)
[2017-01-03 09:01] LABS: BILIRUBIN,TOTAL 11.5 mg/dL (0.2-2.0)
[2017-01-03 10:27] LABS: HDL CHOLESTEROL 9 mg/dL (29-75); TRIGLYCERIDES 187 mg/dL (10-160)
[2017-01-03 10:28] LABS: CHOLESTEROL 759 mg/dL (0-200)
[2017-01-03 10:29] LABS: LDL CHOLESTEROL 713 mg/dL (-130); LDL/HDL RATIO 79 RATIO (0-4)
[2017-01-04 07:10] LABS: HEMATOCRIT 34.1 % (38.0-50.0); HEMOGLOBIN 11.2 gm/dL (13.0-16.0); MEAN CELL VOLUME 92.6 FL (83-96); MEAN CORPUSCULAR HEMOGLOBIN 30.3 PG (28-34); MEAN CORPUSCULAR HGB CONC 32.7 g/dL (30-36); MEAN PLATELET VOLUME 7.2 FL (6.5-11.5); RED BLOOD COUNT 3.68 X10e (3.90-5.60); RED CELL DISTRIBUTION WIDTH 15.2 % (11.0-15.5); WHITE BLOOD COUNT 4.8 X10e3 (4.0-10.5)
[2017-01-04 07:49] LABS: ALBUMIN SERUM 1.5 g/dL (3.5-5.0); ALKALINE PHOSPHATASE 877 U/L (32-92); ALT (SGPT) 82 U/L (10-40); AMYLASE 9 U/L (0-46); AST (SGOT) 73 U/L (10-42); BILIRUBIN, DIRECT 3.9 mg/dL (0.0-0.2); BLOOD UREA NITROGEN 11 mg/dL (9-23); BUN/CREATININE RATIO 18.33; CARBON DIOXIDE 26 mmol/L (22-31); CHLORIDE 94 mmol/L (100-111); CREATININE SERUM 0.6 mg/dL (0.6-1.4); GLOM FILT RATE Estimated 101.9 mL/min (>60); GLUCOSE FASTING 177 mg/dL (70-110); MAGNESIUM 1.8 mg/dL (1.6-3.0); POTASSIUM 3.3 mmol/L (3.5-5.1); PROTEIN TOTAL SERUM 4.2 g/dL (6.0-8.3); SODIUM 128 mmol/L (135-145)
[2017-01-04 08:01] LABS: BILIRUBIN,TOTAL 6.1 mg/dL (0.2-2.0); LIPASE <10 U/L (22-51)
[2017-01-05 06:15] LABS: HEMATOCRIT 33.7 % (38.0-50.0); HEMOGLOBIN 11.2 gm/dL (13.0-16.0); MEAN CELL VOLUME 93.2 FL (83-96); MEAN CORPUSCULAR HEMOGLOBIN 31.1 PG (28-34); MEAN CORPUSCULAR HGB CONC 33.4 g/dL (30-36); MEAN PLATELET VOLUME 7.2 FL (6.5-11.5); RED BLOOD COUNT 3.61 X10e (3.90-5.60)
[2017-01-05 06:18] LABS: WHITE BLOOD COUNT 9.8 X10e3 (4.0-10.5)
[2017-01-05 07:21] LABS: ALBUMIN SERUM 1.8 g/dL (3.5-5.0); BUN/CREATININE RATIO 16.25; CALCIUM SERUM 8.5 mg/dL (8.4-10.2); CREATININE SERUM 0.8 mg/dL (0.6-1.4); GLOM FILT RATE Estimated 90.5 mL/min (>60); POTASSIUM 4.1 mmol/L (3.5-5.1); PREALBUMIN 14.8 mg/dL (17.0-42.0); PROTEIN TOTAL SERUM 4.7 g/dL (6.0-8.3)
[2017-01-05 07:22] LABS: BILIRUBIN,TOTAL 4.1 mg/dL (0.2-2.0)
== END 2017-01-05 16:19 | disposition home or self-care (01) | DRG 444 ==
LOC: CED 11:30 → CEDOF 16:40 → C5B 23:58 → C2A 01-05 09:17
PROVIDERS: Emergency Medicine; Family Medicine; Internal Medicine; Internal Medicine Gastroenterology
PROC: 0FC98ZZ Extirpation of Matter from Common Bile Duct, Via Natural or Artificial Opening Endoscopic (ICD-10-PCS; principal; 2017-01-04 18:47)
PROC: 0F798DZ Dilation of Common Bile Duct with Intraluminal Device, Via Natural or Artificial Opening Endoscopic (ICD-10-PCS; 2017-01-04 18:47)
DX: K83.1 Obstruction of bile duct (principal); E43 Unspecified severe protein-calorie malnutrition; E11.65 Type 2 diabetes mellitus with hyperglycemia; Z99.81 Dependence on supplemental oxygen; R65.10 Systemic inflammatory response syndrome (SIRS) of non-infectious origin without acute organ dysfunction; N39.0 Urinary tract infection, site not specified; E87.1 Hypo-osmolality and hyponatremia; K80.51 Calculus of bile duct without cholangitis or cholecystitis with obstruction; I10 Essential (primary) hypertension; E78.5 Hyperlipidemia, unspecified; Z66 Do not resuscitate; G47.33 Obstructive sleep apnea (adult) (pediatric); G89.4 Chronic pain syndrome; Z85.72 Personal history of non-Hodgkin lymphomas; Z92.21 Personal history of antineoplastic chemotherapy; Z92.3 Personal history of irradiation; F17.210 Nicotine dependence, cigarettes, uncomplicated; E87.6 Hypokalemia; D64.9 Anemia, unspecified; D17.79 Benign lipomatous neoplasm of other sites; Z79.4 Long term (current) use of insulin; Z68.32 Body mass index [BMI] 32.0-32.9, adult
CPT/HCPCS: 36415; 71010; 74177; 74328; 80048; 80053; 80061; 80076; 80307; 81003; 82150; 82248; 82550; 82553; 82947; 83036; 83605; 83690; 83735; 83880; 84132; 84134; 84443; 84484; 85025; 85027; 85610; 87040; 88104; 93005; 93970; 97161; 99285; G8978-GP; G8979-GP; G8980-GP; J0330; J0696; J1815; J3475; Q9967

== ENCOUNTER 2017-01-10 05:50 | Emergency (ER) | payer MEDICARE, OTHER ==
--- NOTE | ~2017-01-10 | CT72 ---
[facility] A Service of [facility] & [facility] RADIOLOGY TEXT RESULTS PATIENT: JOSE LAUREN LOCATION: [facility] : [birth year] UNIT #: [id number] AGE: [address]: Patel Colón MD SEX: M ORDER DR: [id number] [facility] [address] [place], [place] [address] [id number] MR#: [id number] Acc #: [id number] NAME: JOSE LAUREN. : 1945 SEX: M STUDY DATE/TIME: 01/10/2017 5:29 UNIT: [facility] ROOM: STUDY DESCRIPTION: CT Head Wo Contrast Stroke Attending Physician: Patel Colón M.D. Ordering Physician: Patel Colón M.D. Primary Care Physician: Bong Krishnan M.D. MEDICAL IMAGING REPORT This report is preliminary unless electronic signature is present EXAM CT head, noncontrast, 01/10/2017 HISTORY 71-year-old male in the ED after head injury. Fell while walking to the bathroom prior to arrival. Posterior scalp laceration. Complains of right arm and leg weakness. TECHNIQUE CT examination of the head without IV contrast. This CT exam was performed with one or more of the following radiation dose reduction techniques: automatic control, adjustment of mA and/or kV according to patient size, and iterative reconstruction. FINDINGS The examination shows multifocal acute subdural hematomas. The largest is positioned along the left side of the midline falx measuring up to 9.5 cm in length and 2.3 cm in thickness. Multifocal thin acute subdural hematoma is also present overlying portions of the right upper frontal and parietal lobe. No acute intraparenchymal or intraventricular hemorrhage is seen. Mild cerebral atrophy with slightly disproportionate enlargement of the ventricles. Left upper parietal scalp contusion, but no visible skull fracture. The results were discussed by telephone with the ordering ED physician prior to this dictation at 05:45 hours on 01/10/2017. IMPRESSION 1. Multifocal bilateral acute subdural hematomas. The largest is positioned along the left side of the upper midline falx measuring up [facility] A Service of [facility] & [facility] RADIOLOGY TEXT RESULTS PATIENT: JOSE LAUREN LOCATION: [facility] : [birth year] UNIT #: [id number] AGE: [address]: Patel Colón MD SEX: M ORDER DR: to 9.5 x 2.3 cm. Extensive, thin acute subdural hematoma overlying the right upper cerebral hemisphere. No significant midline shift or adjacent cerebral edema. 2. No intraparenchymal or intraventricular extension of hemorrhage. 3. Small left upper parietal scalp contusion. No skull fracture. Dictated by... Danilo Cannon M.D. THIS IS AN ELECTRONICALLY VERIFIED REPORT Danilo Cannon M.D. at 01/10/2017 9:51 PM ASA/buffy TD: 01/10/2017 05:55 JOB #: [id number] MEDICAL IMAGING REPORT Page 1 of 1 COPY
[~2017-01-10 05:50] MED LIST changes: +AMBIEN12.5 M1 PO; +BAYER CHEWABLE81 MG PO; +CHLORTHALIDONE25 MG PO; +GLUCOTROL10 MG PO; +LANTUS100 U/ML SUBQ; +LORTAB 7.5-3251 EACH PO; +METFORMIN PO; +METOPROLOL TAR25 MG PO; +MULTI VITAMIN1 EACH PO; +NEURONTIN600 MG PO; +OXYCONTIN; +POTASSIUM CHLO10 MEQ PO; +PRINIVIL20 M1 PO; +VITAMIN B122500 MCG PO; +VITAMIN D350000 UNIT PO; +VITAMIN E100 UNI3 PO; +ZOCOR PO
== END 2017-01-10 05:52 | disposition short-term general hospital (02) ==
LOC: CFTX 05:50
DX: S06.5X0A Traumatic subdural hemorrhage without loss of consciousness, initial encounter (principal); E11.9 Type 2 diabetes mellitus without complications; I10 Essential (primary) hypertension; W22.8XXA Striking against or struck by other objects, initial encounter
CPT/HCPCS: 70450; 82947; 99285